=== PATIENT | male | born 1985 | race Hispanic/Latino ===

== ENCOUNTER 2018-12-06 16:41 | Inpatient (IN) | payer SELFPAY ==
[2018-12-06 16:46] VITALS: BMI 29.9
[2018-12-06] MEDS ORDERED: Sodium Chloride 0.9% 1,000 ML IV ONE ×2 (17:07→17:40)
--- NOTE | 2018-12-06 17:10 | C.PDOC ---
History Of Present Illness 33 year old male with PMHx of ADHD, Depression, Lyme disease and meningitis is brought to the ED by girlfriend for evaluation of confusion. 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 She states she took him home because she thought he was overheated and thought the symptoms were going to pass. Notes she did not bring him earlier to the ED because patient does not have health insurance. Reports patient was complaining of low back back and b/l knee pain. Patient reports he fell last night and hit his head. He also states he has not been sleeping well during the last few days. Denies any recent travels or illness. Denies any syncope, nausea, vomiting, diarrhea, fever, chills, chest pain, shortness of breath, headache, neck pain/stiffness, abdominal pain, rash, or urinary symptoms. Time Seen by Provider: 12/06/18 16:53 Chief Complaint (Nursing): Weakness/Neurological Deficit History Per: Patient, Other (girlfriend ) History/Exam Limitations: no limitations Onset/Duration Of Symptoms: Hrs Current Symptoms Are (Timing): Still Present Past Medical History Reviewed: Historical Data, Nursing Documentation, Vital Signs Vital Signs: Last Vital Signs Temp 99.3 F 12/06/18 16:47 Pulse 130 H 12/06/18 16:47 Resp 18 12/06/18 16:47 BP 141/76 12/06/18 16:47 Pulse Ox 89 L 12/06/18 16:47 Primary Care Provider: FAMILY PROVIDER,NO - Medical History Other PMH: Lyme disease, Meningitis, ADHD, Depression Surgical History: No Surg Hx Family History: States: No Known Family Hx - Social History Hx Alcohol Use: No Hx Substance Use: No - Immunization History Hx Tetanus Toxoid Vaccination: No Hx Influenza Vaccination: No Hx Pneumococcal Vaccination: No Review Of Systems Except As Marked, All Systems Reviewed And Found Negative. Constitutional: Negative for: Fever, Chills ENT: Positive for: Nose Congestion Cardiovascular: Negative for: Chest Pain Respiratory: Negative for: Cough, Shortness of Breath Gastrointestinal: Negative for: Nausea, Vomiting, Abdominal Pain, Diarrhea Genitourinary: Negative for: Dysuria, Hematuria Neurological: Positive for: Confusion. Negative for: Weakness, Numbness, Headache Physical Exam - Physical Exam Appears: Non-toxic, No Acute Distress, Other (drowsy, arouses w/verbal stimuli) Skin: Warm, Dry, No Rash Head: Atraumatic, Normacephalic Eye(s): bilateral: PERRL (2 mm), EOMI Nose: Normal Oral Mucosa: Dry, Other (pink ) Neck: Normal ROM, Supple Chest: Symmetrical Cardiovascular: Rhythm Regular, No Murmur, Other (Tachycardic ) Respiratory: Decreased Breath Sounds, No Rales, No Rhonchi, No Wheezing Gastrointestinal/Abdominal: Soft, No Tenderness, No Guarding, No Rebound Back: Normal Inspection, No CVA Tenderness Extremity: Normal ROM, No Pedal Edema Extremity: Bilateral: Atraumatic, Normal Color And Temperature, Normal ROM Neurological/Psych: Normal Motor (5/5 muscle strength), Normal Sensation, Eyes Open With Command, Slow To Respond With Command, Other (drowsy but arousable, CN 2-12 intact) ED Course And Treatment - Laboratory Results Result Diagrams: 12/07/18 05:40 12/07/18 05:40 ECG: Interpreted By Me, Viewed By In ECG Rhythm: Sinus Tachycardia Interpretation Of ECG: Normal axis. Normal intervals. No ST/T wave elevations Rate From EC O2 Sat by Pulse Oximetry: 89 (RA) Pulse Ox Interpretation: Abnormal - CT Scan/US CT head Other Rad Studies (CT/US): Read By Radiologist, Radiology Report Reviewed CT/US Interpretation: Name:MARIAELENA CEBALLOS Exam Date:December 06, 2018 5:47:29 PM EDT. Modality Type:CT. Description:CT - BRAIN. Gender:M Laterality:Not applicable. :84 Referring Physician:TEDDY RÍOS. EXAM: CT Head Without IV contrast. CLINICAL HISTORY: AMS. TECHNIQUE: Axial computed tomography images of the head/brain without intravenous contrast. COMPARISON: None provided. FINDINGS: BRAIN: No acute intraparenchymal hemorrhage. No mass lesion. No CT evidence for acute territorial infarct. No midline shift or extra-axial collections. VENTRICLES: No hydrocephalus. ORBITS: The orbits are unremarkable. SINUSES AND MASTOIDS: The paranasal sinuses and mastoid air cells are clear. BONES: No fracture. SOFT TISSUES: Unremarkable. IMPRESSION: No acute intracranial abnormality. . Electronically signed on December 06, 2018 6:45:34 PM EDT by: Shaun Khan M.D., M.B.A., Certified By [facility]BR. Fellowship Trained MRI and CT Specialist Medical Decision Making Medical Decision Making: Plan - CT head - Bloodwork - CXR - Tylenol 650mg PO - IV fluids - UA 19:10 Mother arrived to ED, states patient used to abuse Heroin. Narcan 0.4 mg given. Patient responded to Narcan, now more awake, states he is on Suboxone, continues to deny current drug use. UDS positive for opiates and benzos. 19:37 - Patient is accepted by Dr. Brown for the Hospitalist service, Kwabena Schuster. Dr. Brown requests expanded drug screen panel and admission to [facility]. I also ordered a PA/Lat cxr now that patient is fully awake and can cooperate better w/exam. Results of w/u d/w patient who is agreeable w/POC. Disposition Counseled Patient/Family Regarding: Studies Performed, Diagnosis - Disposition Disposition: HOSPITALIZED Disposition Time: 19:35 Condition: IMPROVED - POA Present On Arrival: None - Clinical Impression Clinical Impression: Opiate drug detected in blood, Rhabdomyolysis, Altered mental status - Scribe Statement The provider has reviewed the documentation as recorded by the Scribrafiq Lerma All medical record entries made by the Scribe were at my direction and personally dictated by me. I have reviewed the chart and agree that the record accurately reflects my personal performance of the history, physical exam, [facility] decision making, and the department course for this patient. I have also personally directed, reviewed, and agree with the discharge instructions and disposition.
[2018-12-06 17:14] LABS: VENOUS BLOOD GAS BASE EXCESS 2.8 mmol/L (0.0-2.0); VENOUS BLOOD GAS PCO2 59 mmHg (40-60); VENOUS BLOOD GAS PO2 51 mm/Hg (30-55); VENOUS BLOOD PH 7.32 (7.32-7.43)
[2018-12-06 17:14] LABS: BASO # 0.1 K/uL (0.0-0.2); BASO % 0.6 % (0.0-2.0); EOS # 0.4 K/uL (0.0-0.7); EOS % 4.9 % (0.0-4.0); HEMOGLOBIN 14.1 g/dL (12.0-18.0); LYMPH # 1.6 K/uL (1.0-4.3); LYMPH % 18.7 % (20.0-40.0); MEAN CELL VOLUME 91.5 fL (80.0-94.0); MEAN CORPUSCULAR HEMOGLOBIN 30.2 pg (27.0-31.0); MEAN CORPUSCULAR HGB CONC 33.1 g/dL (33.0-37.0); MEAN PLATELET VOLUME 10.1 fL (7.2-11.7); MONO # 0.8 K/uL (0.0-0.8); MONO % 9.7 % (0.0-10.0); NEUT # 5.6 K/uL (1.8-7.0); NEUT % 66.1 % (50.0-75.0); RBC 4.66 Mil/uL (4.40-5.90); WHITE BLOOD COUNT 8.5 K/uL (4.8-10.8)
[2018-12-06 17:22] LABS: INR 1.2; PARTIAL THROMBOPLASTIN TIME 29.4 SECONDS (21-34)
[2018-12-06 17:30] LABS: ALB/GLOB RATIO 1.4 (1.0-2.1); ALBUMIN 4.1 g/dL (3.5-5.0); BLOOD UREA NITROGEN 13 mg/dL (9-20); CALCIUM 9.1 mg/dl (8.6-10.4); GFR NON-AFRICAN AMERICAN > 60
--- NOTE | 2018-12-06 17:31 | RAD ---
HISTORY: AMS COMPARISON: None available. TECHNIQUE: Chest, one view. FINDINGS: Examination limited by habitus and hypoinflation. LUNGS: Mild to moderate pulmonary venous congestion. Bilateral central vascular congestion/hilar prominence. Please note that chest x-ray has limited sensitivity for the detection of pulmonary masses. PLEURA: No significant pleural effusion identified. No definite pneumothorax . CARDIOVASCULAR: Heart size appears within normal limits. OSSEOUS STRUCTURES: Degenerative changes. VISUALIZED UPPER ABDOMEN: Unremarkable. OTHER FINDINGS: None. IMPRESSION: Examination limited by habitus and hypoinflation. Mild to moderate pulmonary venous congestion. Bilateral central vascular congestion/hilar prominence.
[2018-12-06 17:40] LABS: CK-MB 20.2 ng/mL (0.0-3.38)
[2018-12-06 17:41] LABS: ALT/SGPT 43 U/L (21-72); AST/SGOT 94 U/L (17-59)
[2018-12-06 18:53] LABS: SQUAMOUS EPITHIAL < 1 /hpf (0-5); URINE BACTERIA RARE (<OCC); URINE BILIRUBIN NEGATIVE (NEGATIVE); URINE BLOOD NEGATIVE (NEGATIVE); URINE CLARITY Clear (Clear); URINE COLOR Amber (YELLOW); URINE GLUCOSE (UA) NORMAL (Normal); URINE LEUKOCYTE ESTERASE NEG Leu/uL (Negative); URINE PROTEIN 1+ mg/dL (NEGATIVE)
[2018-12-06 19:05] LABS: BARBITURATES, UR NEGATIVE (NEGATIVE); PHENCYCLIDINE, UR NEGATIVE (NEGATIVE)
[2018-12-06 19:09] LABS: BENZODIAZEPINES, UR POSITIVE (NEGATIVE); OPIATES, UR POSITIVE (NEGATIVE)
[2018-12-06] MEDS ORDERED: Naloxone 0.4 mg/ml Inj (Adult) IVP ONE (19:13)
[2018-12-06] MEDS ORDERED: Naloxone 0.4 mg/ml Inj (Adult) ONE (19:13)
--- NOTE | 2018-12-06 19:58 | CP.PCM.HP ---
History of Present Illness - History of Present Illness History of Present Illness: PGY-1 Monica Bass D.O. H&P for Dr. Barney Yuan's service: Patient is a 33 yo male with a reported history of chronic Lyme disease, ADHD, h/o viral meningitis, and depression who presents with AMS. Patient is a poor historian. He is very lethargic and superficially cooperative throughout the exam. Mother is at bedside who provides some information. 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 Patient explains that he has had chronic joint pain for 8 years since being diagnosed with Lyme disease. He says he then took an "opiate medication." He then is fuzzy on the details afterwards. He says he has only slept 4 hours in the last 2 days. As per ED note, patient's girlfriend found him at work outside confused and holding onto a pole on his knees. She initially took him home, but when his confusion did not resolve, she brought him to the ED. Patient says something similar has happened to him before where he had muscle breakdown and kidney injury during which he had to be watched in the hospital. Presently patient's only complaint is fatigue. He is not at all forthcoming on his substance use. As per ED note, mother indicated that patient previously used heroin. 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 absent: Chills, Excessive Sweating, Fever, Headache - EENT Eyes: absent: Change in Vision Ears: absent: Decreased Hearing, Tinnitus Nose/Mouth/Throat: absent: Nasal Congestion, Sore Throat - Cardiovascular Cardiovascular: absent: Chest Pain, Palpitations - Respiratory Respiratory: absent: Cough, Dyspnea - Gastrointestinal Gastrointestinal: absent: Abdominal Pain, Constipation, Diarrhea, Nausea, Vomiting - Genitourinary Genitourinary: absent: Dysuria, Hematuria - Musculoskeletal Musculoskeletal: Arthralgias, Muscle Cramps. absent: Numbness, Tingling - Integumentary Integumentary: absent: New Lesions, Rash - Neurological Neurological: Confusion. absent: Convulsions, Dizziness, Focal Weakness, Headaches - Psychiatric Psychiatric: Abnormal Sleep Pattern, Confusion, Difficulty Concentrating - Endocrine Endocrine: Fatigue. absent: Palpitations - Hematologic/Lymphatic Hematologic: absent: Easy Bleeding, Easy Bruising, Lymphadenopathy Past Patient History - Infectious Disease Hx of Infectious Diseases: None - Tetanus Immunizations Tetanus Immunization: Unknown - Past Medical History & Family History Past Medical History?: Yes - Past Social History Smoking Status: vap Chewing Tobacco Use: No Cigar Use: No Alcohol: None Drugs: Opiates, Prescription medications - NEUROLOGICAL Hx Neurological Disorder: Yes Other/Comment: ADD - ENDOCRINE/METABOLIC Hx Endocrine Disorders: Yes Other/Comment: lyme disease. hx of meningitis - PSYCHIATRIC Hx Substance Use: No - SURGICAL HISTORY Hx Surgeries: No Meds Allergies/Adverse Reactions: Allergies Allergy/AdvReac Type Severity Reaction Status Date / Time No Known Allergies Allergy Verified 12/06/18 16:46 Physical Exam - Constitutional Appears: No Acute Distress, Other (lethargic, continuously closes eyes and stops talking durign exam, poor eye contact) - Head Exam Head Exam: ATRAUMATIC, NORMAL INSPECTION - Eye Exam Eye Exam: EOMI Pupil Exam: Miosis, PERRL - ENT Exam ENT Exam: Mucous Membranes Moist - Respiratory Exam Respiratory Exam: Clear to Auscultation Bilateral, NORMAL BREATHING PATTERN - Cardiovascular Exam Cardiovascular Exam: RRR, +S1, +S2 - GI/Abdominal Exam GI & Abdominal Exam: Soft. absent: Tenderness - Extremities Exam Extremities exam: Positive for: normal inspection. Negative for: tenderness - Back Exam Back exam: NORMAL INSPECTION - Neurological Exam Neurological exam: Alert, Oriented x3 - Psychiatric Exam Additional comments: lethargic - Skin Skin Exam: Dry, Warm Results - Vital Signs Recent Vital Signs: Last Vital Signs Temp 99.3 F 12/06/18 18:44 Pulse 125 H 12/06/18 19:17 Resp 14 12/06/18 19:17 BP 120/60 12/06/18 19:17 Pulse Ox 89 L 12/06/18 19:38 - Labs Result Diagrams: 12/06/18 17:05 12/06/18 17:05 Labs: Laboratory Results - last 24 hr 12/06/18 12/06/18 12/06/18 16:50 17:05 17:05 WBC 8.5 RBC 4.66 Hgb 14.1 Hct 42.6 MCV 91.5 MCH 30.2 MCHC 33.1 RDW 13.0 Plt Count 248 MPV 10.1 Neut % (Auto) 66.1 Lymph % (Auto) 18.7 L Hayes % (Auto) 9.7 Eos % (Auto) 4.9 H Baso % (Auto) 0.6 Neut # (Auto) 5.6 Lymph # (Auto) 1.6 Hayes # (Auto) 0.8 Eos # (Auto) 0.4 Baso # (Auto) 0.1 PT INR APTT pO2 VBG pH VBG pCO2 VBG HCO3 VBG Total CO2 VBG O2 Sat (Calc) VBG Base Excess VBG Potassium Glucose Lactate Sodium 138 Potassium 4.6 Chloride 99 Carbon Dioxide 28 Anion Gap 15 BUN 13 Creatinine 1.1 Est GFR ( Amer) > 60 Est GFR (Non-Af Amer) > 60 POC Glucose (mg/dL) 73 Random Glucose 66 L Calcium 9.1 Total Bilirubin 0.7 AST 94 H ALT 43 Alkaline Phosphatase 54 Total Creatine Kinase 1466 H CK-MB (Mass) 20.2 H Troponin I < 0.0120 NT-Pro-B Natriuret Pep Total Protein 7.1 Albumin 4.1 Globulin 3.0 Albumin/Globulin Ratio 1.4 Venous Blood Potassium Urine Color Urine Clarity Urine pH Ur Specific [place] Urine Protein Urine Glucose (UA) Urine Ketones Urine Blood Urine Nitrate Urine Bilirubin Urine Urobilinogen Ur Leukocyte Esterase Urine WBC (Auto) Urine RBC (Auto) Ur Squamous Epith Cells Urine Bacteria Urine Opiates Screen Urine Methadone Screen Ur Barbiturates Screen Ur Phencyclidine Scrn Ur Amphetamines Screen U Benzodiazepines Scrn U Oth Cocaine Metabols U Cannabinoids Screen Alcohol, Quantitative 12/06/18 12/06/18 12/06/18 17:05 17:05 17:11 WBC RBC Hgb Hct MCV MCH MCHC RDW Plt Count MPV Neut % (Auto) Lymph % (Auto) [place] % (Auto) Eos % (Auto) Baso % (Auto) Neut # (Auto) Lymph # (Auto) Hayes # (Auto) Eos # (Auto) Baso # (Auto) PT 13.0 H INR 1.2 APTT 29.4 pO2 51 VBG pH 7.32 VBG pCO2 59 VBG HCO3 26.7 VBG Total CO2 32.2 H VBG O2 Sat (Calc) 87.4 H VBG Base Excess 2.8 H VBG Potassium 4.4 Glucose 63 L Lactate 0.8 Sodium 137.0 Potassium Chloride 102.0 Carbon Dioxide Anion Gap BUN Creatinine Est GFR ( Amer) Est GFR (Non-Af Amer) POC Glucose (mg/dL) Random Glucose Calcium Total Bilirubin AST ALT Alkaline Phosphatase Total Creatine Kinase CK-MB (Mass) Troponin I NT-Pro-B Natriuret Pep 17.2 Total Protein Albumin Globulin Albumin/Globulin Ratio Venous Blood Potassium 4.4 Urine Color Urine Clarity Urine pH Ur Specific [place] Urine Protein Urine Glucose (UA) Urine Ketones Urine Blood Urine Nitrate Urine Bilirubin Urine Urobilinogen Ur Leukocyte Esterase Urine WBC (Auto) Urine RBC (Auto) Ur Squamous Epith Cells Urine Bacteria Urine Opiates Screen Urine Methadone Screen Ur Barbiturates Screen Ur Phencyclidine Scrn Ur Amphetamines Screen U Benzodiazepines Scrn U Oth Cocaine Metabols U Cannabinoids Screen Alcohol, Quantitative 12/06/18 12/06/18 12/06/18 17:30 18:36 18:36 WBC RBC Hgb Hct MCV MCH MCHC RDW Plt Count MPV Neut % (Auto) Lymph % (Auto) [place] % (Auto) Eos % (Auto) Baso % (Auto) Neut # (Auto) Lymph # (Auto) Hayes # (Auto) Eos # (Auto) Baso # (Auto) PT INR APTT pO2 VBG pH VBG pCO2 VBG HCO3 VBG Total CO2 VBG O2 Sat (Calc) VBG Base Excess VBG Potassium Glucose Lactate Sodium Potassium Chloride Carbon Dioxide Anion Gap BUN Creatinine Est GFR ( Amer) Est GFR (Non-Af Amer) POC Glucose (mg/dL) Random Glucose Calcium Total Bilirubin AST ALT Alkaline Phosphatase Total Creatine Kinase CK-MB (Mass) Troponin I NT-Pro-B Natriuret Pep Total Protein Albumin Globulin Albumin/Globulin Ratio Venous Blood Potassium Urine Color [place] Urine Clarity Clear Urine pH 6.0 Ur Specific [place] 1.033 H Urine Protein 1+ H Urine Glucose (UA) Normal Urine Ketones 1+ H Urine Blood Negative Urine Nitrate Negative Urine Bilirubin Negative Urine Urobilinogen 4.0 Ur Leukocyte Esterase Neg Urine WBC (Auto) 2 Urine RBC (Auto) 3 Ur Squamous Epith Cells < 1 Urine Bacteria Rare Urine Opiates Screen Positive H Urine Methadone Screen Negative Ur Barbiturates Screen Negative Ur Phencyclidine Scrn Negative Ur Amphetamines Screen Positive H U Benzodiazepines Scrn Positive U Oth Cocaine Metabols Negative U Cannabinoids Screen Negative Alcohol, Quantitative < 10 Assessment & Plan - Assessment and Plan (Free Text) Assessment: Patient is a 33 yo male with a reported history of chronic Lyme disease, ADHD, h/o viral meningitis, and depression who presents with AMS. Found to have rhabomyolysis with UDS positive for opiates and amphetamines. Plan: Rhabdomyolysis, acute - CT head: no acute pathology - Tachycardic (110s-130s) - Tmax 100.3 - CPK 1466- trend - BUN 13, Cr 1.1- monitor - Lactate 0.8 - Urine spec grav elev (1.033), 1+ ketones, 1+ prot - NS @ 200 cc/hr AMS due to Polysubstance use disorder, chronic - Responded to Narcan in ED - UDS- opiates, amphetamines - BAL <10 - Serum drug panel pending - Blood glucose 66 on admission - Accuchecks ACHS - Hypoglycemia protocol - Neuro checks Q1H x5 hours - Narcan 0.4 mg IVP Q5M PRN Ppx: VTE: ambulatory GI: not indicated Diet: Regular Code status: full code Dispo: monitor neuro status, ensure CK trending down Case discussed with attending, Dr. Yuan.
[2018-12-06] MEDS ORDERED: Naloxone 0.4 mg/ml Inj (Adult) IVP PRN (22:33)
[2018-12-07 05:43] LABS: BASO % 0.7 % (0.0-2.0); EOS # 0.4 K/uL (0.0-0.7); EOS % 6.4 % (0.0-4.0); LYMPH # 1.4 K/uL (1.0-4.3); LYMPH % 24.4 % (20.0-40.0); MEAN CELL VOLUME 91.4 fL (80.0-94.0); MEAN CORPUSCULAR HEMOGLOBIN 30.5 pg (27.0-31.0); MEAN CORPUSCULAR HGB CONC 33.4 g/dL (33.0-37.0); MEAN PLATELET VOLUME 9.6 fL (7.2-11.7); MONO # 0.7 K/uL (0.0-0.8); MONO % 11.5 % (0.0-10.0); NEUT # 3.3 K/uL (1.8-7.0); RBC 4.25 Mil/uL (4.40-5.90); RED CELL DISTRIBUTION WIDTH 12.8 % (11.5-14.5); WHITE BLOOD COUNT 5.8 K/uL (4.8-10.8)
[2018-12-07 06:11] LABS: ALB/GLOB RATIO 1.3 (1.0-2.1); ALBUMIN 3.2 g/dL (3.5-5.0); ALT/SGPT 45 U/L (21-72); AST/SGOT 87 U/L (17-59); BLOOD UREA NITROGEN 11 mg/dL (9-20); CALCIUM 8.3 mg/dl (8.6-10.4); GFR NON-AFRICAN AMERICAN > 60
--- NOTE | 2018-12-07 07:44 | CP.PCM.PN ---
<Nikole Oliver L - Last Filed: 12/07/18 10:54> Subjective - Date & Time of Evaluation Date of Evaluation: 12/07/18 Time of Evaluation: 07:44 - Subjective Subjective: Resident Progress Note for Hospitalist Service Patient examined at bedside. No acute events overnight. Patient states he is hungry, denies any other complaints. States he takes Xanax to combat the side effects of his Adderall. Denies fevers, chills, myalgias, chest pain, shortness of breath, nausea, vomiting, abdominal pain. Objective - Vital Signs/Intake and Output Vital Signs (last 24 hours): Temp Pulse Resp BP Pulse Ox 97.8 F 85 12 103/50 L 95 12/07/18 05:43 12/07/18 07:19 12/07/18 07:19 12/07/18 07:19 12/07/18 07:19 - Medications Medications: Current Medications Sodium Chloride (Sodium Chloride 0.9%) 1,000 mls @ 200 mls/hr IV .Q5H ISABEL Naloxone HCl (Narcan) 0.4 mg IVP Q2M PRN PRN Reason: Excess sedation - Labs Labs: 12/07/18 05:40 12/07/18 05:40 PT 13.0 SECONDS (9.7-12.2) H 12/06/18 17:05 INR 1.2 12/06/18 17:05 APTT 29.4 SECONDS (21-34) 12/06/18 17:05 - Constitutional Appears: No Acute Distress - Head Exam Head Exam: ATRAUMATIC, NORMOCEPHALIC - Eye Exam Eye Exam: EOMI - ENT Exam ENT Exam: Mucous Membranes Moist - Respiratory Exam Respiratory Exam: Clear to Auscultation Bilateral, NORMAL BREATHING PATTERN. absent: Ronchi, Wheezes, Rales - Cardiovascular Exam Cardiovascular Exam: RRR, +S1, +S2. absent: Tachycardia - GI/Abdominal Exam GI & Abdominal Exam: Soft. absent: Tenderness, Rebound, Rigid - Extremities Exam Extremities exam: Positive for: normal inspection. Negative for: tenderness - Neurological Exam Neurological exam: Alert, Oriented x3 - Psychiatric Exam Psychiatric exam: Normal Affect, Normal Mood - Skin Skin Exam: Dry, Warm, Normal Color Assessment and Plan - Assessment and Plan (Free Text) Assessment: Patient is a 33 year old male with history of chronic Lyme disease, ADHD, viral meningitis, heroine abuse and depression who presented with altered mental status and was found to have rhabomyolysis with UDS positive for opiates and amphetamines. Plan: Rhabdomyolysis - CT head: no acute pathology - fever resolved - CPK trending up, continue to monitor - Urine spec grav elev (1.033), 1+ ketones, 1+ prot - NS @ 200 cc/hr AMS due to polysubstance use disorder - Narcan administered in ED - UDS positive for opiates, amphetamines - BAL <10 - Serum drug panel pending - Neurochecks - Narcan 0.4 mg IVP Q5M PRN - Psychiatry consulted, appreciate recs PPX VTE: ambulatory GI: not indicated Code status: full code Dispo: monitor neuro status and CK trend Case reviewed with Dr. Georgie Oliver PGY-1 <Erlinda Jacques - Last Filed: 12/08/18 16:16> Objective - Vital Signs/Intake and Output Vital Signs (last 24 hours): Temp Pulse Resp BP Pulse Ox 97.9 F 81 16 119/67 89 L 12/07/18 15:40 12/07/18 15:40 12/07/18 15:52 12/07/18 15:40 12/07/18 19:52 - Labs Labs: 12/07/18 05:40 12/07/18 05:40 PT 13.0 SECONDS (9.7-12.2) H 12/06/18 17:05 INR 1.2 12/06/18 17:05 APTT 29.4 SECONDS (21-34) 12/06/18 17:05 Attending/Attestation - Attestation I have personally seen and examined this patient.: Yes I have fully participated in the care of the patient.: Yes I have reviewed all pertinent clinical information, including history, physical exam and plan: Yes Notes (Text): continue hydration for his rhabomyolysis Patient wants to leave AMA. spoke to him about drug rehab. He is alert oriented x3 discussed about hydration.
--- NOTE | 2018-12-07 08:00 | CT ---
Date of service: 12/06/2018 PROCEDURE: CT HEAD WITHOUT CONTRAST. HISTORY: Altered mental status COMPARISON: None available. TECHNIQUE: Axial computed tomography images were obtained through the head/brain without intravenous contrast. Radiation dose: Total exam DLP = 1095.71 mGy-cm. This CT exam was performed using one or more of the following dose reduction techniques: Automated exposure control, adjustment of the mA and/or kV according to patient size, and/or use of iterative reconstruction technique. FINDINGS: HEMORRHAGE: No intracranial hemorrhage. BRAIN: No mass effect or edema. No atrophy or chronic microvascular ischemic changes. VENTRICLES: Unremarkable. No hydrocephalus. CALVARIUM: Unremarkable. PARANASAL SINUSES: Unremarkable as visualized. No significant inflammatory changes. MASTOID AIR CELLS: Unremarkable as visualized. No inflammatory changes. OTHER FINDINGS: None. IMPRESSION: No acute intracranial abnormality. If symptoms persists, consider correlation with MRI. A preliminary report was generated at 6:45 p.m. on 12/06/[address] Shaun Khan from [employer].
[2018-12-07 08:08] VITALS: TEMP 97.9
--- NOTE | 2018-12-07 09:56 | RAD ---
Date of service: 12/06/2018 HISTORY: fever COMPARISON: December 06, 2018. Study performed 17:16. TECHNIQUE: Chest PA and lateral views FINDINGS: LUNGS: No active pulmonary disease. PLEURA: No significant pleural effusion identified. No pneumothorax apparent. CARDIOVASCULAR: No aortic atherosclerotic calcification present. Normal cardiac size. No pulmonary vascular congestion. OSSEOUS STRUCTURES: No significant abnormalities. VISUALIZED UPPER ABDOMEN: Normal. OTHER FINDINGS: None. IMPRESSION: No active disease. Findings previously attributable to pulmonary vascular congestion are not readily apparent on the current study. Improved inspiratory effort and two-view technique.
[2018-12-07] MEDS: Sodium Chloride 0.9% 1,000 ML IV SCH ×3 (10:04→18:24)
[2018-12-07] MEDS ORDERED: Glucagon Recombinant 1 mg Inj IM PRN (11:02)
[2018-12-07] MEDS ORDERED: Dextrose 50% SYRINGE Inj (50 ml) IV PRN (11:02)
--- NOTE | 2018-12-07 12:19 | PCM.PSYCH ---
Initial Psychiatric Evaluation - Initial Psychiatric Evaluation Type of Admission: Voluntary Legal Status: Capacity Chief Complaint (in patient's own words): "Tired" History of Present Illness and Precipitating Events: The patient is seen, chart reviewed and case discussed. 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 The patient is here for dizziness and confusion, BIB his GF. He admits to using Xanax 1-2 mg a day, Adderall 30-60 mg a day for the last 10 years but also he claims he used 1 pill of an opiate yesterday. Of note, his urine is positive for all 3, but if he used an oxycodone pill, it would not have come positive as opiates in her urine drug test. He likely used heroin or morphine. Moreover, he responded well to narcanin ED which was given after his mo told them he used to use heroin. In ED pt claimed that he was on suboxone but it is not found in [facility] [employer]. He denies all other drug use and alcohol use but he has had abused anabolic steroids last year. He feels tired and dizzy and denies any withdrawal symptoms at this point. He also denies significant depression, psychosis or jaxon. He feels anxious a little bit. Past psych history: Denies any admissions but he did go to therapy in the past. No suicide attempts. He was in detox "years ago" for opiates. Family psych history: Mother was bipolar and paternal grandparents were alcoholics, he claims Medical history: Chronic Lyme disease. Current Medications: Active Medications Generic Name Dose Route Start Last Admin Trade Name Yocasta PRN Reason Stop Dose Admin Dextrose 0 ml 12/07/18 11:02 Dextrose 50% Inj IV STAT PRN Hypoglycemia Protocol Protocol Dextrose 0 gm 12/07/18 11:02 Glutose 15 PO ONCE PRN Hypoglycemia Protocol Protocol Glucagon 0 mg 12/07/18 11:02 Glucagen Diagnostic Kit IM STAT PRN Hypoglycemia Protocol Protocol Sodium Chloride 1,000 mls @ 200 mls/hr 12/06/18 22:30 12/07/18 10:04 Sodium Chloride 0.9% IV 200 mls/hr .Q5H ISABEL Administration Dextrose 1,000 mls @ 0 mls/hr 12/07/18 11:02 Dextrose 5% In Water 1000 Ml IV .Q0M PRN Hypoglycemia Protocol Protocol Per Protocol Naloxone HCl 0.4 mg 12/06/18 22:33 Narcan IVP Q2M PRN Excess sedation Past Psychiatric History - Past Psychiatric History Previous Treatment History: Intensive Outpatient Pertinent Medical Hx (Current Medical&Sleep Prob, Allergies): Allergies Allergy/AdvReac Type Severity Reaction Status Date / Time No Known Allergies Allergy Verified 12/06/18 16:46 Adderall 12/06/18 Review of Systems - Psychiatric Psychiatric: Abnormal Sleep Pattern, Anxiety, Difficulty Concentrating, Irritability. absent: Depression, Hallucinations, Homicidal Ideation, Suicidal Ideation Mental Status Examination - Personal Presentation Personal Presentation: Looks stated age - Affect Affect: Constricted - Motor Activity Motor Activity: Calm - Reliability in Providing Information Reliability in Providing Information: Fair - Speech Speech: Organized - Mood Mood: Depressed, Anxious - Formal Thought Process Formal Thought Process: No Impairment - Cognitive Functions Orientation: Person, Place, Situation, Time Sensorium: Alert Attention/Concentration: Easily distracted Estimate of Intelligence: Average Judgement: Imparied, as evidence by: Poor judgement Memory: Recent intact, as evidence by: Ability to recall events of the day, Remote intact, as evidenced by: Abilit to recall sig. life events - Risk Risk: Withdrawal, Diminished functioning - Strength & Assets Inventory Strength & Assets Inventory: Cooperative DSM 5 DX - DSM 5 DSM 5 Diagnosis: Sedative, hypnotic, anxiolytic use disorder Opioid use disorder ADHD by history Rule out stimulant use disorder - Recommended/Plan of Treatment Treatment Recommendations and Plan of Treatment: Monitor for withdrawal symptoms of opioids and benzos If CIWA is high start Librium 25 mg every 6 hours If COWS is high call the advertising writer for possible methadone or suboxone As needed Ativan Support and psychoeducation Outpatient IOP recommended 32 minutes
--- NOTE | 2018-12-07 15:14 | CARD ---
APPROVED REPORT Date of service: 12/06/2018 EKG Measurement Heart [id number] <Conclusion> Sinus tachycardia Otherwise normal ECG
[2018-12-07 15:55] VITALS: RESP 16
[2018-12-07 16:19] VITALS: BP 119/67; PULSE 81
[2018-12-07 19:29] VITALS: O2SAT 89
--- NOTE | 2018-12-07 20:23 | CP.PCM.DIS ---
<Heriberto Shen - Last Filed: 12/07/18 20:24> Provider - Provider Date of Admission: 12/06/18 19:37 Attending physician: Erlinda Jacques MD Consults: 12/07/18 09:47 Psychiatry Consult Routine Comment: Consulting Provider: Leigha Gonzalez Consulting Physician: Leigha Gonzalez Reason for Consult: hx substance abuse, drug rehab Time Spent in preparation of Discharge (in minutes): 45 Diagnosis - Discharge Diagnosis (1) Altered mental status Status: Acute (2) Rhabdomyolysis Status: Acute Hospital Course - Lab Results Lab Results: Micro Results 12/06/18 17:50 Blood Blood Culture - Preliminary NO GROWTH AFTER 24 HOURS 12/06/18 16:50 Blood Blood Culture - Preliminary NO GROWTH AFTER 24 HOURS Most Recent Lab Values WBC 5.8 K/uL (4.8-10.8) 12/07/18 05:40 RBC 4.25 Mil/uL (4.40-5.90) L 12/07/18 05:40 Hgb 13.0 g/dL (12.0-18.0) 12/07/18 05:40 Hct 38.8 % (35.0-51.0) 12/07/18 05:40 MCV 91.4 fL (80.0-94.0) 12/07/18 05:40 MCH 30.5 pg (27.0-31.0) 12/07/18 05:40 MCHC 33.4 g/dL (33.0-37.0) 12/07/18 05:40 RDW 12.8 % (11.5-14.5) 12/07/18 05:40 Plt Count 195 K/uL (130-400) 12/07/18 05:40 MPV 9.6 fL (7.2-11.7) 12/07/18 05:40 Neut % (Auto) 57.0 % (50.0-75.0) 12/07/18 05:40 Lymph % (Auto) 24.4 % (20.0-40.0) 12/07/18 05:40 Woods % (Auto) 11.5 % (0.0-10.0) H 12/07/18 05:40 Eos % (Auto) 6.4 % (0.0-4.0) H 12/07/18 05:40 Baso % (Auto) 0.7 % (0.0-2.0) 12/07/18 05:40 Neut # (Auto) 3.3 K/uL (1.8-7.0) 12/07/18 05:40 Lymph # (Auto) 1.4 K/uL (1.0-4.3) 12/07/18 05:40 Woods # (Auto) 0.7 K/uL (0.0-0.8) 12/07/18 05:40 Eos # (Auto) 0.4 K/uL (0.0-0.7) 12/07/18 05:40 Baso # (Auto) 0.0 K/uL (0.0-0.2) 12/07/18 05:40 PT 13.0 SECONDS (9.7-12.2) H 12/06/18 17:05 INR 1.2 12/06/18 17:05 APTT 29.4 SECONDS (21-34) 12/06/18 17:05 pO2 51 mm/Hg (30-55) 12/06/18 17:11 VBG pH 7.32 (7.32-7.43) 12/06/18 17:11 VBG pCO2 59 mmHg (40-60) 12/06/18 17:11 VBG HCO3 26.7 mmol/L 12/06/18 17:11 VBG Total CO2 32.2 mmol/L (22-28) H 12/06/18 17:11 VBG O2 Sat (Calc) 87.4 % (40-65) H 12/06/18 17:11 VBG Base Excess 2.8 mmol/L (0.0-2.0) H 12/06/18 17:11 VBG Potassium 4.4 mmol/L (3.6-5.2) 12/06/18 17:11 Sodium 137.0 mmol/l (132-148) 12/06/18 17:11 Chloride 102.0 mmol/L (98-107) 12/06/18 17:11 Glucose 63 mg/dl (75-110) L 12/06/18 17:11 Lactate 0.8 mmol/L (0.7-2.1) 12/06/18 17:11 Sodium 136 mmol/L (132-148) 12/07/18 05:40 Potassium 4.0 mmol/L (3.6-5.2) 12/07/18 05:40 Chloride 104 mmol/L (98-107) 12/07/18 05:40 Carbon Dioxide 26 mmol/L (22-30) 12/07/18 05:40 Anion Gap 10 (10-20) 12/07/18 05:40 BUN 11 mg/dL (9-20) 12/07/18 05:40 Creatinine 0.8 mg/dL (0.8-1.5) 12/07/18 05:40 Est GFR ( Amer) > 60 12/07/18 05:40 Est GFR (Non-Af Amer) > 60 12/07/18 05:40 POC Glucose (mg/dL) 135 mg/dL (65-110) H 12/07/18 16:10 Random Glucose 65 mg/dL (75-110) L 12/07/18 05:40 Calcium 8.3 mg/dl (8.6-10.4) L 12/07/18 05:40 Phosphorus 3.4 mg/dL (2.5-4.5) 12/07/18 05:40 Magnesium 2.0 mg/dL (1.6-2.3) 12/07/18 05:40 Total Bilirubin 0.5 mg/dL (0.2-1.3) 12/07/18 05:40 AST 87 U/L (17-59) H 12/07/18 05:40 ALT 45 U/L (21-72) 12/07/18 05:40 Alkaline Phosphatase 50 U/L (38-126) 12/07/18 05:40 Total Creatine Kinase 2534 U/L (55-170) H 12/07/18 05:40 CK-MB (Mass) 20.2 ng/mL (0.0-3.38) H 12/06/18 17:05 Troponin I < 0.0120 ng/mL (0.00-0.120) 12/06/18 17:05 NT-Pro-B Natriuret Pep 17.2 pg/mL (0-450) 12/06/18 17:05 Total Protein 5.8 g/dL (6.3-8.3) L 12/07/18 05:40 Albumin 3.2 g/dL (3.5-5.0) L D 12/07/18 05:40 Globulin 2.6 gm/dL (2.2-3.9) 12/07/18 05:40 Albumin/Globulin Ratio 1.3 (1.0-2.1) 12/07/18 05:40 Venous Blood Potassium 4.4 mmol/L (3.6-5.2) 12/06/18 17:11 Urine Color Katty (YELLOW) 12/06/18 18:36 Urine Clarity Clear (Clear) 12/06/18 18:36 Urine pH 6.0 (5.0-8.0) 12/06/18 18:36 Ur Specific [place] 1.033 (1.003-1.030) H 12/06/18 18:36 Urine Protein 1+ mg/dL (NEGATIVE) H 12/06/18 18:36 Urine Glucose (UA) Normal mg/dL (Normal) 12/06/18 18:36 Urine Ketones 1+ mg/dL (NEGATIVE) H 12/06/18 18:36 Urine Blood Negative (NEGATIVE) 12/06/18 18:36 Urine Nitrate Negative (NEGATIVE) 12/06/18 18:36 Urine Bilirubin Negative (NEGATIVE) 12/06/18 18:36 Urine Urobilinogen 4.0 mg/dL (0.2-1.0) 12/06/18 18:36 Ur Leukocyte Esterase Neg Will/uL (Negative) 12/06/18 18:36 Urine WBC (Auto) 2 /hpf (0-5) 12/06/18 18:36 Urine RBC (Auto) 3 /hpf (0-3) 12/06/18 18:36 Ur Squamous Epith Cells < 1 /hpf (0-5) 12/06/18 18:36 Urine Bacteria Rare (<OCC) 12/06/18 18:36 Urine Opiates Screen Positive (NEGATIVE) H 12/06/18 18:36 Urine Methadone Screen Negative (NEGATIVE) 12/06/18 18:36 Ur Barbiturates Screen Negative (NEGATIVE) 12/06/18 18:36 Ur Phencyclidine Scrn Negative (NEGATIVE) 12/06/18 18:36 Ur Amphetamines Screen Positive (NEGATIVE) H 12/06/18 18:36 U Benzodiazepines Scrn Positive (NEGATIVE) 12/06/18 18:36 U Oth Cocaine Metabols Negative (NEGATIVE) 12/06/18 18:36 U Cannabinoids Screen Negative (NEGATIVE) 12/06/18 18:36 Alcohol, Quantitative < 10 mg/dl (0-10) 12/06/18 17:30 - Hospital Course Hospital Course: Patient is leaving against medical advice Patient advised on risks and possible worsening condition associated with current status advised to follow up in Clinic with Dr Wilson and Infectious Disease Dr Mauricio for possible unresolved Lyme CK PGY1 Discharge Exam - Head Exam Head Exam: ATRAUMATIC, NORMAL INSPECTION - Additional Findings Additional findings: - Constitutional Appears: No Acute Distress, - Head Exam Head Exam: ATRAUMATIC, NORMAL INSPECTION - Eye Exam Eye Exam: EOMI Pupil Exam: Miosis, PERRL - ENT Exam ENT Exam: Mucous Membranes Moist - Respiratory Exam Respiratory Exam: Clear to Auscultation Bilateral, NORMAL BREATHING PATTERN - Cardiovascular Exam Cardiovascular Exam: RRR, +S1, +S2 - GI/Abdominal Exam GI & Abdominal Exam: Soft. absent: Tenderness - Extremities Exam Extremities exam: Positive for: normal inspection. Negative for: tenderness - Back Exam Back exam: NORMAL INSPECTION - Neurological Exam Neurological exam: Alert, Oriented x3 - Psychiatric Exam Additional comments: lethargic - Skin Skin Exam: Dry, Warm Discharge Plan - Follow Up Plan Condition: IMPROVED Disposition: AGAINST MEDICAL ADVICE Instructions: Rhabdomyolysis (DC), Altered Mental Status (GEN) Additional Instructions: Patient is leaving against medical advice Patient advised on risks and possible worsening condition associated with current status advised to follow up in Clinic with Dr Wilson and Infectious Disease Dr Mauricio for possible unresolved Lyme CK PGY1 Referrals: Ta Mauricio MD [Staff Provider] - Mary Ellen Wilson MD [Staff Provider] - <Erlinda Jacques - Last Filed: 12/08/18 16:14> Provider - Provider Date of Admission: 12/06/18 19:37 Attending physician: Erlinda Jacques MD Consults: 12/07/18 09:47 Psychiatry Consult Routine Comment: Consulting Provider: Leigha Gonzalez Consulting Physician: Leigha Gonzalez Reason for Consult: hx substance abuse, drug rehab Hospital Course - Lab Results Lab Results: Micro Results 12/06/18 17:50 Blood Blood Culture - Preliminary NO GROWTH AFTER 24 HOURS 12/06/18 16:50 Blood Blood Culture - Preliminary NO GROWTH AFTER 24 HOURS Most Recent Lab Values WBC 5.8 K/uL (4.8-10.8) 12/07/18 05:40 RBC 4.25 Mil/uL (4.40-5.90) L 12/07/18 05:40 Hgb 13.0 g/dL (12.0-18.0) 12/07/18 05:40 Hct 38.8 % (35.0-51.0) 12/07/18 05:40 MCV 91.4 fL (80.0-94.0) 12/07/18 05:40 MCH 30.5 pg (27.0-31.0) 12/07/18 05:40 MCHC 33.4 g/dL (33.0-37.0) 12/07/18 05:40 RDW 12.8 % (11.5-14.5) 12/07/18 05:40 Plt Count 195 K/uL (130-400) 12/07/18 05:40 MPV 9.6 fL (7.2-11.7) 12/07/18 05:40 Neut % (Auto) 57.0 % (50.0-75.0) 12/07/18 05:40 Lymph % (Auto) 24.4 % (20.0-40.0) 12/07/18 05:40 Woods % (Auto) 11.5 % (0.0-10.0) H 12/07/18 05:40 Eos % (Auto) 6.4 % (0.0-4.0) H 12/07/18 05:40 Baso % (Auto) 0.7 % (0.0-2.0) 12/07/18 05:40 Neut # (Auto) 3.3 K/uL (1.8-7.0) 12/07/18 05:40 Lymph # (Auto) 1.4 K/uL (1.0-4.3) 12/07/18 05:40 Woods # (Auto) 0.7 K/uL (0.0-0.8) 12/07/18 05:40 Eos # (Auto) 0.4 K/uL (0.0-0.7) 12/07/18 05:40 Baso # (Auto) 0.0 K/uL (0.0-0.2) 12/07/18 05:40 PT 13.0 SECONDS (9.7-12.2) H 12/06/18 17:05 INR 1.2 12/06/18 17:05 APTT 29.4 SECONDS (21-34) 12/06/18 17:05 pO2 51 mm/Hg (30-55) 12/06/18 17:11 VBG pH 7.32 (7.32-7.43) 12/06/18 17:11 VBG pCO2 59 mmHg (40-60) 12/06/18 17:11 VBG HCO3 26.7 mmol/L 12/06/18 17:11 VBG Total CO2 32.2 mmol/L (22-28) H 12/06/18 17:11 VBG O2 Sat (Calc) 87.4 % (40-65) H 12/06/18 17:11 VBG Base Excess 2.8 mmol/L (0.0-2.0) H 12/06/18 17:11 VBG Potassium 4.4 mmol/L (3.6-5.2) 12/06/18 17:11 Sodium 137.0 mmol/l (132-148) 12/06/18 17:11 Chloride 102.0 mmol/L (98-107) 12/06/18 17:11 Glucose 63 mg/dl (75-110) L 12/06/18 17:11 Lactate 0.8 mmol/L (0.7-2.1) 12/06/18 17:11 Sodium 136 mmol/L (132-148) 12/07/18 05:40 Potassium 4.0 mmol/L (3.6-5.2) 12/07/18 05:40 Chloride 104 mmol/L (98-107) 12/07/18 05:40 Carbon Dioxide 26 mmol/L (22-30) 12/07/18 05:40 Anion Gap 10 (10-20) 12/07/18 05:40 BUN 11 mg/dL (9-20) 12/07/18 05:40 Creatinine 0.8 mg/dL (0.8-1.5) 12/07/18 05:40 Est GFR ( Amer) > 60 12/07/18 05:40 Est GFR (Non-Af Amer) > 60 12/07/18 05:40 POC Glucose (mg/dL) 135 mg/dL (65-110) H 12/07/18 16:10 Random Glucose 65 mg/dL (75-110) L 12/07/18 05:40 Calcium 8.3 mg/dl (8.6-10.4) L 12/07/18 05:40 Phosphorus 3.4 mg/dL (2.5-4.5) 12/07/18 05:40 Magnesium 2.0 mg/dL (1.6-2.3) 12/07/18 05:40 Total Bilirubin 0.5 mg/dL (0.2-1.3) 12/07/18 05:40 AST 87 U/L (17-59) H 12/07/18 05:40 ALT 45 U/L (21-72) 12/07/18 05:40 Alkaline Phosphatase 50 U/L (38-126) 12/07/18 05:40 Total Creatine Kinase 2534 U/L (55-170) H 12/07/18 05:40 CK-MB (Mass) 20.2 ng/mL (0.0-3.38) H 12/06/18 17:05 Troponin I < 0.0120 ng/mL (0.00-0.120) 12/06/18 17:05 NT-Pro-B Natriuret Pep 17.2 pg/mL (0-450) 12/06/18 17:05 Total Protein 5.8 g/dL (6.3-8.3) L 12/07/18 05:40 Albumin 3.2 g/dL (3.5-5.0) L D 12/07/18 05:40 Globulin 2.6 gm/dL (2.2-3.9) 12/07/18 05:40 Albumin/Globulin Ratio 1.3 (1.0-2.1) 12/07/18 05:40 Venous Blood Potassium 4.4 mmol/L (3.6-5.2) 12/06/18 17:11 Urine Color Katty (YELLOW) 12/06/18 18:36 Urine Clarity Clear (Clear) 12/06/18 18:36 Urine pH 6.0 (5.0-8.0) 12/06/18 18:36 Ur Specific [place] 1.033 (1.003-1.030) H 12/06/18 18:36 Urine Protein 1+ mg/dL (NEGATIVE) H 12/06/18 18:36 Urine Glucose (UA) Normal mg/dL (Normal) 12/06/18 18:36 Urine Ketones 1+ mg/dL (NEGATIVE) H 12/06/18 18:36 Urine Blood Negative (NEGATIVE) 12/06/18 18:36 Urine Nitrate Negative (NEGATIVE) 12/06/18 18:36 Urine Bilirubin Negative (NEGATIVE) 12/06/18 18:36 Urine Urobilinogen 4.0 mg/dL (0.2-1.0) 12/06/18 18:36 Ur Leukocyte Esterase Neg Will/uL (Negative) 12/06/18 18:36 Urine WBC (Auto) 2 /hpf (0-5) 12/06/18 18:36 Urine RBC (Auto) 3 /hpf (0-3) 12/06/18 18:36 Ur Squamous Epith Cells < 1 /hpf (0-5) 12/06/18 18:36 Urine Bacteria Rare (<OCC) 12/06/18 18:36 Urine Opiates Screen Positive (NEGATIVE) H 12/06/18 18:36 Urine Methadone Screen Negative (NEGATIVE) 12/06/18 18:36 Ur Barbiturates Screen Negative (NEGATIVE) 12/06/18 18:36 Ur Phencyclidine Scrn Negative (NEGATIVE) 12/06/18 18:36 Ur Amphetamines Screen Positive (NEGATIVE) H 12/06/18 18:36 U Benzodiazepines Scrn Positive (NEGATIVE) 12/06/18 18:36 U Oth Cocaine Metabols Negative (NEGATIVE) 12/06/18 18:36 U Cannabinoids Screen Negative (NEGATIVE) 12/06/18 18:36 Alcohol, Quantitative < 10 mg/dl (0-10) 12/06/18 17:30 Attending/Attestation - Attestation I have personally seen and examined this patient.: No I have fully participated in the care of the patient.: No I have reviewed all pertinent clinical information, including history, physical exam and plan: No Notes (Text): patient left AMA last night 12/08/18 16:14
== END 2018-12-07 20:20 | disposition left against medical advice (07) | DRG 558 ==
LOC: C.ER 16:41 → C.9E 19:37 → C.5S 12-07 06:55
PROVIDERS: ADMIT Emergency Medicine; ATTEND Internal Medicine
DX: M62.82 Rhabdomyolysis (principal); F32.9 Major depressive disorder, single episode, unspecified; G89.29 Other chronic pain; F11.10 Opioid abuse, uncomplicated; F13.10 Sedative, hypnotic or anxiolytic abuse, uncomplicated; F90.9 Attention-deficit hyperactivity disorder, unspecified type; M25.561 Pain in right knee; M25.562 Pain in left knee; Z86.61 Personal history of infections of the central nervous system